=== PATIENT | female | born 2005 | race African-American/Black ===

== ENCOUNTER 2025-11-03 15:06 | Emergency (ER) | payer OTHER ==
[~2025-11-03] VITALS: Ht 160 cm; Wt 58.0 kg
[2025-11-03 15:12] VITALS: O2SAT 99
[2025-11-03 15:40] VITALS: BP 134/88; PULSE 64; RESP 18; TEMP 37; O2SAT 100
[2025-11-03 16:43] LABS: CLARITY URINE CLOUDY (CLEAR); COLOR URINE YELLOW (YELLOW); GLUCOSE URINE NEGATIVE (NEGATIVE); KETONES URINE 4+ (NEGATIVE); LEUKOCYTE ESTERASE URINE NEGATIVE (NEGATIVE); NITRITE URINE NEGATIVE (NEGATIVE); OCCULT BLOOD URINE NEGATIVE (NEGATIVE); PH URINE 6.0 (4.5-8.0); PROTEIN URINE 1+ (NEGATIVE); SPECIFIC GRAVITY URINE 1.023 (1.005-1.030); UROBILINOGEN URINE 0.2 E.U./dL (0.2-1.0)
[2025-11-03] MEDS: ONDANSETRON 4MG ODT PO ONE (16:54)
[2025-11-03 16:56] LABS: BACTERIA URINE 1+; RBC URINE 0-2 /hpf (0-2); SQUAMOUS EPITHELIAL CELL URINE FEW /lpf (RARE/1+); WBC URINE 0-2 /hpf (0-2)
== END 2025-11-03 17:03 | disposition left against medical advice (07) ==
LOC: ER 15:06
DX: A08.4 Viral intestinal infection, unspecified (principal)
CPT/HCPCS: 81003; 99283